=== PATIENT | female | born 1950 | race Two or more races ===

== ENCOUNTER 2018-02-15 09:37 | Day surgery (SDC) | payer OTHER ==
[~2018-02-15 09:37] MED LIST: HYDROCHLOROTHIA25 MG PO; LOSARTAN-HCTZ1 EAC1 PO; PRILOSEC20 MG PO; TOPROL XL50 MG PO
== END 2018-02-15 16:40 | disposition home or self-care (01) ==
LOC: CIR.AMB 09:37
DX: K80.10 Calculus of gallbladder with chronic cholecystitis without obstruction (principal)

== ENCOUNTER 2019-04-11 09:41 | Outpatient (CLI) | payer OTHER | END 2019-04-11 09:50 | disposition home or self-care (01) | LOC: SONOGRAMA 09:41 → MAMO-SONO 09:45 → SONOGRAMA 09:50 | DX: M25.511 Pain in right shoulder (principal) ==